=== PATIENT | female | born 1950 | race Caucasian/White ===

== ENCOUNTER 2016-08-06 16:06 | Emergency (ER) | payer MEDICARE ==
--- NOTE | ~2016-08-06 | CT71 ---
[facility] A Service of [facility] & [facility] RADIOLOGY TEXT RESULTS PATIENT: ALLYN WARREN LOCATION: [facility] : 51 UNIT #: [id number] AGE: [address]: Cleve Dobson DO SEX: F ORDER DR: [id number] [facility] [address] [place], [place] [address] [id number] E MR#: [id number] Acc #: [id number] NAME: ALLYN WARREN. : 1950 SEX: F STUDY DATE/TIME: 08/06/2016 16:22 UNIT: [facility] ROOM: STUDY DESCRIPTION: CT Head Wo Contrast Attending Physician: Cleve Dobson D.O. Ordering Physician: Cleve Dobson D.O. MEDICAL IMAGING REPORT This report is preliminary unless electronic signature is present EXAM Noncontrast head CT. HISTORY 66-year-old female, confusion, altered mental status, onset today. No detailed history provided. Patient just kept stating "it hurts, it hurts". TECHNIQUE This CT exam was performed with one or more of the following radiation dose reduction techniques: automatic exposure control, adjustment of mA and/or kV according to patient size, and iterative reconstruction. FINDINGS Axial noncontrast imaging of the brain demonstrates hyperdensity overlying the cortex of the left frontal lobe interposed within the sulci compatible with acute subarachnoid hemorrhage. This is predominately subarachnoid blood, though there may be a very small amount of intraparenchymal or cortical hemorrhage, though clearly no defined hematoma. There may be minimal effacement of the sulci but no significant mass effect and no midline shift or ventricular asymmetry. No extraaxial fluid collections are identified. Underlying cortex is felt to be normal, though early infarct cannot be excluded. Clearly, no mass lesion or mass effect. Skull base and basilar cisterns unremarkable. Bony calvaria, mastoids and sinuses unremarkable. There may be a very small amount of subdural blood, particularly over the anterior aspect of the left frontal lobe but clearly, no sizeable extraaxial collection is identified. A small amount also extends into the left sylvian fissure. IMPRESSION STS. [facility] A Service of [facility] & [facility] RADIOLOGY TEXT RESULTS PATIENT: ALLYN WARREN [id number] : 52 UNIT #: [id number] AGE: [address]: Cleve Dobson DO SEX: F ORDER DR: Christy. CT findings compatible with acute subarachnoid hemorrhage, predominately over the left frontal cortex. This is predominately subarachnoid blood, though there may be a very small amount of cortical hemorrhage, though clearly no intraparenchymal hematoma identified and no evidence of a sizeable subdural or epidural hematoma. No significant mass effect. This would be an unusual site for subarachnoid blood and the leading cause would probably be trauma. This is not in the typical location seen with ruptured aneurysm and this is considered unlikely. Again, no underlying mass lesion identified and clearly no large vessel infarct identified. Please note, these findings were discussed with Dr. Dobson prior to this dictation. Dictated by... Sunyn Birch M.D. THIS IS AN ELECTRONICALLY VERIFIED REPORT Sunny Birch M.D. at 08/06/2016 8:37 PM Amalia TD: 08/06/2016 19:23 JOB #: [id number] MEDICAL IMAGING REPORT Page 1 of 1 COPY
--- NOTE | ~2016-08-06 | CR72 ---
[facility] A Service of [facility] & [facility] RADIOLOGY TEXT RESULTS PATIENT: ALLYN WARREN LOCATION: [facility] : 52 UNIT #: [id number] AGE: [address]: Cleve Dobson DO SEX: F ORDER DR: [id number] [facility] [address] [place], [place] [address] [id number] E MR#: [id number] Acc #: [id number] NAME: ALLYN WARREN. : 1950 SEX: F STUDY DATE/TIME: 08/06/2016 15:22 UNIT: [facility] ROOM: STUDY DESCRIPTION: CR Chest Single View Portable Attending Physician: Cleve Dobson D.O. Ordering Physician: Cleve Dobson D.O. MEDICAL IMAGING REPORT This report is preliminary unless electronic signature is present EXAM Portable chest HISTORY Shortness of air with activity and altered mental status. COMPARISON 08/17/2009. FINDINGS Portable view of the chest demonstrates mild pulmonary hyperinflation, patchy hyperlucency suggesting mild emphysema. No acute airspace disease or consolidation. Heart, mediastinum unremarkable. Osseous structures appear normal. Overall no acute findings. Dictated by... Sunny Birch M.D. THIS IS AN ELECTRONICALLY VERIFIED REPORT Sunny Birch M.D. at 08/06/2016 8:37 PM Amalia TD: 08/06/2016 18:41 JOB #: [id number] MEDICAL IMAGING REPORT Page 1 of 1 COPY
--- NOTE | ~2016-08-06 | CT4 ---
[facility] A Service [facility] RADIOLOGY TEXT RESULTS PATIENT: ALLYN WARREN LOCATION: [facility] : 52 UNIT #: [id number] AGE: [address]: Cleve Dobson DO SEX: F ORDER DR: [id number] [facility] [address] [place], [place] [address] [id number] E MR#: [id number] Acc #: [id number] NAME: ALLYN WARREN. : 1950 SEX: F STUDY DATE/TIME: 08/06/2016 16:29 UNIT: [facility] ROOM: STUDY DESCRIPTION: CT Abd and Pelv Wo Cont Attending Physician: Cleve Dobson D.O. Ordering Physician: Cleve Dobson D.O. MEDICAL IMAGING REPORT This report is preliminary unless electronic signature is present EXAM CT abdomen and pelvis without contrast HISTORY 66-year-old female with altered mental status, confusion, onset today. History of UTIs, abdominal pain. TECHNIQUE Axial images performed through the abdomen and pelvis without contrast. Multiplanar reconstructed images reviewed at a workstation. This CT exam was performed with one or more of the following radiation dose reduction techniques: automatic exposure control, adjustment of mA and/or kV according to patient size, and iterative reconstruction. FINDINGS ABDOMEN: Lung bases suggest emphysema. Moderate-sized hiatal hernia. Liver, spleen unremarkable. The gallbladder is absent. Kidneys and adrenal glands appear normal. No free air free fluid. Visualized GI tract unremarkable. Retroperitoneum unremarkable, except for atherosclerotic changes. PELVIS: Uterus absent. Bladder mildly distended. Osseous structures unremarkable for age. There is lower lumbar spine facet arthropathy. IMPRESSION No acute intraabdominal or intrapelvic pathology identified. [facility] A Service [facility] RADIOLOGY TEXT RESULTS PATIENT: ALLYN WARREN LOCATION: [facility] : 52 UNIT #: [id number] AGE: [address]: Cleve Dobson DO SEX: F ORDER DR: Dictated by.Nika Alonso.D. THIS IS AN ELECTRONICALLY VERIFIED REPORT Sunny Birch M.D. at 08/06/2016 8:37 PM JANA/lilian TD: 08/06/2016 19:30 JOB #: [id number] MEDICAL IMAGING REPORT Page 1 of 1 COPY
--- NOTE | ~2016-08-06 | CT52 ---
[facility] A Service of [facility] & [facility] RADIOLOGY TEXT RESULTS PATIENT: ALLYN WARREN LOCATION: [facility] : 52 UNIT #: [id number] AGE: [address]: Cleve Dobson DO SEX: F ORDER DR: [id number] [facility] [address] [place], [place] [address] [id number] E MR#: [id number] Acc #: [id number] NAME: ALLYN WARREN. : 1950 SEX: F STUDY DATE/TIME: 08/06/2016 16:52 UNIT: [facility] ROOM: STUDY DESCRIPTION: CT Cervical Spine Wo Cont Attending Physician: Cleve Dobson D.O. Ordering Physician: Cleve Dobson D.O. Primary Care Physician: No Primary Care Physician MEDICAL IMAGING REPORT This report is preliminary unless electronic signature is present EXAM CT cervical spine without contrast. HISTORY 66-year-old female confusion onset today complains of posterior neck pain since this morning. TECHNIQUE NOTE: This CT exam was performed with one or more of the following radiation dose reduction techniques: automatic exposure control, adjustment of mA and/or kV according to patient size, and iterative reconstruction. FINDINGS Thin section axial images performed through the cervical spine without contrast. Multiplanar reconstructed images reviewed at a workstation. Study is slightly degraded due to motion artifact. Mild arthritic change of atlantoaxial joint. There is an incomplete ring of C2, normal anatomic variant. Mild anterolisthesis C3 on C4 probably degenerative in nature. C4-5, C5-6, and C6-7 degenerative disc disease with spinal stenosis most pronounced at C4-5 and multilevel foraminal stenosis most pronounced on the right at C5-6 and also at C4-5. Paravertebral soft tissues unremarkable. Upper thorax demonstrates emphysema. IMPRESSION 1. No definite acute cervical spine abnormality. 2. Multilevel degenerative disc disease and facet arthropathy most pronounced C4-5, C5-6, C6-7. Please see above for details. 3. Mild anterolisthesis C3 on C4 felt to be degenerative in nature. 4. Incomplete fusion of the ring of C2 normal anatomic developmental variant. STS. [facility] A Service of [facility] & [facility] RADIOLOGY TEXT RESULTS PATIENT: ALLYN WARREN LOCATION: [facility] #: [id number] : 52 UNIT #: [id number] AGE: [address]: Cleve Dobson DO SEX: F ORDER DR: Dictated by... Sunny Birch M.D. THIS IS AN ELECTRONICALLY VERIFIED REPORT Sunny Birch M.D. at 08/06/2016 8:37 PM Vicente TD: 08/06/2016 19:51 JOB #: [id number] MEDICAL IMAGING REPORT Page 1 of 1 COPY
--- NOTE | ~2016-08-06 | EKG ---
PATIENT: ALLYN WARREN UNIT #: [id number] Ventricular Rate: 58 BPM Atrial Rate: 58 BPM P-R Interval: 156 ms QRS Duration: 114 ms Q-T Interval: 502 ms QTC Calculation(Bezet): 492 ms P [place]: -7 degrees Calculated R [place]: -18 degrees Calculated T [place]: 4 degrees Diagnosis Line: Sinus bradycardia Diagnosis Line: Incomplete right bundle branch block Diagnosis Line: ST and T wave abnormality, consider anterior Diagnosis Line: ischemia Diagnosis Line: Prolonged QT Diagnosis Line: Abnormal ECG Diagnosis Line: No previous ECGs available Diagnosis Line: Confirmed by IGNACIO LONGORIA MD ([id number]) on 08/06/2016 Diagnosis Line: 6:42:15 PM INTERPRETING MD: VON BETH
[2016-08-06 15:42] LABS: URINE SOURCE CLEAN CATCH
[2016-08-06 15:49] LABS: BASOPHIL% 0.3 % (0-2.5); HEMOGLOBIN 14.3 gm/dL (12.0-16.0); LYMPHOCYTE# 2.4 X10e3 (1.0-3.5); MEAN CELL VOLUME 94.8 FL (83-96); MEAN CORPUSCULAR HEMOGLOBIN 30.8 PG (28-34); MEAN CORPUSCULAR HGB CONC 32.5 g/dL (30-36); MEAN PLATELET VOLUME 8.5 FL (6.5-11.5); MONOCYTE# 0.7 X10e3 (0-1.0); MONOCYTE% 6.3 % (3.0-12.0); NEUTROPHIL# 7.9 X10e3 (1.5-7.1); NEUTROPHIL% 71.4 % (40-75); PLATELET COUNT 272 X10e3 (140-420); RED BLOOD COUNT 4.64 X10e (3.90-5.30); RED CELL DISTRIBUTION WIDTH 15.3 % (11.0-15.5)
[2016-08-06 15:51] LABS: URINE APPEARANCE CLEAR; URINE BILIRUBIN NEG (NEG); URINE BLOOD 1+ (NEG); URINE COLOR YELLOW; URINE GLUCOSE NEG (NEG); URINE KETONE NEG (NEG); URINE LEUKOCYTE ESTERASE NEG (NEG); URINE NITRATE NEG (NEG); URINE PH 7.5 (5-8); URINE PROTEIN TRACE (NEG); URINE SPECIFIC GRAVITY 1.013 (1.003-1.035); URINE UROBILINOGEN 0.2 MG/DL (NEG)
[2016-08-06 15:54] LABS: URINE BACTERIA AUWI NEG (NEGATIVE); URINE SQUAMOUS EPITHELIAL CELL OCC /[HPF]; UWBCS1 AUWI 0-2 (0-5)
[2016-08-06 15:55] LABS: DIFF IND NO
[2016-08-06 16:00] LABS: CULTURE INDICATED? NO
[~2016-08-06 16:06] MED LIST: ADVIL200 M1 PO
[2016-08-06 16:07] LABS: PARTIAL THROMBOPLASTIN TIME 23.4 SECONDS (23.5-31.3); PROTHROMBIN TIME (PATIENT) 10.5 SECONDS (9.6-11.5)
[2016-08-06 16:09] LABS: ALBUMIN SERUM 4.4 g/dL (3.5-5.0); ALKALINE PHOSPHATASE 90 U/L (32-92); ALT (SGPT) 15 U/L (10-40); AST (SGOT) 22 U/L (10-42); BILIRUBIN, DIRECT 0.1 mg/dL (0.0-0.2); BILIRUBIN,INDIRECT 0.7 mg/dL (0.0-0.9); BILIRUBIN,TOTAL 0.8 mg/dL (0.2-2.0); BLOOD UREA NITROGEN 11 mg/dL (9-23); BUN/CREATININE RATIO 13.75; CALCIUM SERUM 9.5 mg/dL (8.4-10.2); CARBON DIOXIDE 30 mmol/L (22-31); CHLORIDE 104 mmol/L (100-111); CREATININE SERUM 0.8 mg/dL (0.6-1.4); GLOM FILT RATE Estimated 77.4 mL/min (>60); GLUCOSE FASTING 105 mg/dL (70-110); PROTEIN TOTAL SERUM 7.9 g/dL (6.0-8.3); SALICYLATE <4.0 mg/dL; SODIUM 142 mmol/L (135-145)
[2016-08-06 16:11] LABS: ACETAMINOPHEN <10 ug/mL; ALCOHOL BLOOD <5 mg/dL (0); POTASSIUM 2.9 mmol/L (3.5-5.1)
[2016-08-06 16:11] LABS: AMPHETAMINE NEG (NEG); BARBITURATES NEG (NEG); BENZODIAZEPINES POS (NEG); COCAINE NEG (NEG); MARIJUANA NEG (NEG); OPIATES NEG (NEG); TRICYCLIC ANTIDEPRESSANTS NEG (NEG); U METHADONE NEG (NEG)
[2016-08-08 13:16] LABS: POC - CKMB 2.2 ng/mL (0.0-7.9); POC - TROPONIN <0.05 ng/mL (<=0.05)
== END 2016-08-06 17:26 | disposition hospice, home (50) ==
LOC: CED 16:06
PROVIDERS: Emergency Medicine
DX: I60.9 Nontraumatic subarachnoid hemorrhage, unspecified (principal); Z90.710 Acquired absence of both cervix and uterus
CPT/HCPCS: 51701; 70450; 71010; 72125; 74176; 80048; 80076; 80307; 81003; 82140; 82553; 82947; 83605; 84484; 85025; 85610; 85730; 87040; 93005; 99291; G0480